=== PATIENT | male | born 1930 | race Caucasian/White ===

== ENCOUNTER 2019-12-10 10:14 | Emergency (ER) | payer MEDICARE ==
[2019-12-10 10:50] VITALS: BP 131/97
[2019-12-10] MEDS ORDERED: Acetaminophen TAB* 325 MG PO ONE (10:58)
--- NOTE | 2019-12-10 12:26 | UC ---
Hand/Wrist HPI - HPI Summary HPI Summary: 89-year-old male presents with family member complaining of left wrist pain and swelling. States he slipped on the ice yesterday, fell to the ground, and injured the left wrist. States he is unsure of the exact mechanism of injury however thinks that he probably tried to catch himself with that arm. Reports mild pain at rest. Worsens with movement. No numbness or tingling. States did not hit his head or lose consciousness. Denies any other injuries. - History Of Current Complaint Chief Complaint: UCUpperExtremity Stated Complaint: SP FALL-LT WRIST INJURY Time Seen by Provider: 12/10/19 11:43 Hx Obtained From: Patient, Family/Client Support Associate Pain Intensity: 6 - Allergies/Home Medications Allergies/Adverse Reactions: Allergies Allergy/AdvReac Type Severity Reaction Status Date / Time No Known Allergies Allergy Verified 12/10/19 10:46 Home Medications: Home Medications Ferrous Sulfate TAB* 1 tab DAILY 12/10/19 [History Confirmed 12/10/19] Tamsulosin CAP* [Flomax CAP*] 1 tab DAILY 12/10/19 [History Confirmed 12/10/19] PMH/Surg Hx/FS Hx/Imm Hx Previously Healthy: Yes GI/ History: Other - BPH - Surgical History Surgical History: None - Family History Known Family History: Negative: Hypertension - Social History Occupation: Retired Lives: Assisted Living Alcohol Use: None Substance Use Type: None Smoking Status (MU): Never Smoked Tobacco Review of Systems All Other Systems Reviewed And Are Negative: Yes Constitutional: Positive: Negative Skin: Positive: Bruising Respiratory: Positive: Negative Cardiovascular: Positive: Negative Gastrointestinal: Positive: Negative Genitourinary: Positive: Negative Motor: Negative: Weakness Neurovascular: Negative: Decreased Sensation Musculoskeletal: Positive: Other: - See HPI Neurological/Mental Status: Positive: Negative Is Patient Immunocompromised?: No Physical Exam - Summary Physical Exam Summary: GENERAL APPEARANCE: Alert and cooperative older adult male appears to be in no acute distress. HEAD: Atraumatic. Normocephalic. EYES: Conjunctiva clear. No drainage. PERRL, EOM intact. NECK: Neck supple, non-tender. Full ROM. CARDIAC: Normal S1 and S2. No S3, S4 or murmurs. Rhythm is regular. There is no peripheral edema, cyanosis or pallor. Extremities are warm and well perfused. Capillary refill is less than 2 seconds. Peripheral pulses intact. LUNGS: Clear to auscultation without rales, rhonchi, wheezing or diminished breath sounds. ABDOMEN: Positive bowel sounds. Soft, nondistended, nontender. No guarding or rebound. No masses or hepatosplenomegally. MUSKULOSKELETAL: Normal muscular development. Normal gait. BACK: No spinal deformity or tenderness, decreased range of motion or muscular spasm. EXTREMITIES: Tenderness over the dorsal, ulnar left wrist with ecchymosis and edema of the dorsal wrist and proximal hand. ROM mildly decreased due to pain. Circulation and sensation intact. NEUROLOGICAL: Strength and sensation symmetric and intact throughout. SKIN: Skin normal color, texture and turgor for age. Triage Information Reviewed: Yes Vital Signs: Initial Vital Signs Temp 98.7 F 12/10/19 10:41 Pulse 75 12/10/19 10:41 Resp 16 12/10/19 10:41 BP 131/97 12/10/19 10:41 Pulse Ox 97 12/10/19 10:41 Vital Signs Reviewed: Yes Diagnostics - Radiology No standard instances Radiology Interpretation Completed By: Radiologist Summary of Radiographic Findings: Order Information: WRIST LEFT 3+ VWS. INDICATION: Left wrist pain and swelling after a fall the previous day COMPARISON: None. TECHNIQUE: 3 views left wrist. REPORT: The visualized bones are properly aligned and well corticated. The joint spaces are normal.There is no fracture, dislocation or other focal osseous abnormality. IMPRESSION: No radiographically apparent fracture or dislocation. Hand/Wrist Course/Dx - Course Course Of Treatment: 89-year-old male presents with family member complaining of left wrist pain and swelling. States he slipped on the ice yesterday, fell to the ground, and injured the left wrist. States he is unsure of the exact mechanism of injury however thinks that he probably tried to catch himself with that arm. Reports mild pain at rest. Worsens with movement. No numbness or tingling. States did not hit his head or lose consciousness. Denies any other injuries. Afebrile. Mildly hypertensive otherwise vital signs stable. Patient had tenderness over the dorsal, ulnar left wrist with ecchymosis and edema of the dorsal wrist and proximal hand. ROM mildly decreased due to pain. Circulation and sensation intact. Exam was unremarkable. X-ray showed no acute fracture or dislocation. Reviewed results with the patient and family member. Patient was placed in a cockup wrist 1 primary RN. Recommending conservative treatment including over- the-counter acetaminophen as needed for pain and RICE. He is to follow-up with orthopedic surgery in 5-7 days especially if symptoms are not improving. Anticipatory guidance and warning symptoms were reviewed with the patient and family member. Verbalized understanding and agreed with plan of care. - Differential Dx/Diagnosis Differential Diagnosis/HQI/PQRI: Contusion, Dislocation, Fracture, Sprain Provider Diagnosis: Left wrist injury Discharge ED - Sign-Out/Discharge Documenting (check all that apply): Patient Departure All imaging exams completed and their final reports reviewed: No Studies - Discharge Plan Condition: Stable Disposition: HOME Patient Education Materials: Wrist Sprain (ED) Referrals: No Primary Care Phys,NOPCP [Primary Care Provider] - Paulo Morfin MD [Medical Doctor] - 5 Days (Call for appointment.) Additional Instructions: The x-ray performed in the clinic today showed no evidence of a fracture. Rest the wrist as much as possible. Wear the splint that was applied until you are pain free. You may remove to shower but should wear at all other times. Apply ice to the affected area for 15-20 minutes at least 4 times a day to help with the pain and swelling. Elevate the arm to help reduce swelling. Take acetaminophen (Tylenol) according to directions as needed for pain. Follow up with orthopedic surgery in 5-7 days especially if symptoms do not improve. Call for appointment. Seek immediate medical attention if you have severe pain not managed with pain medication, develop numbness or tingling in the hand or fingers, or have any worsening of symptoms. - Billing Disposition and Condition Condition: STABLE Disposition: Home - Attestation Statements Provider Attestation: Chart has been reviewed. I did not see the patient but was available for consult. EK.
== END 2019-12-10 13:28 | disposition home or self-care (01) ==
LOC: UCCORT 10:14
DX: S69.92XA Unspecified injury of left wrist, hand and finger(s), initial encounter (principal); W00.0XXA Fall on same level due to ice and snow, initial encounter; Y92.9 Unspecified place or not applicable
CPT/HCPCS: 99203; A9270-GY; G0463